=== PATIENT | male | born 2000 | race Caucasian/White ===

== ENCOUNTER 2018-11-30 22:43 | Observation (INO) ==
--- OUTSIDE RECORDS SUMMARY | 2018-11-30 22:48 | External Medical Summary | Continuity of Care Document ---
:2000 Author Name Iesha Santillan Address Unavailable Unavailable , Care Team Providers Name Role Phone Seble Santillan Unavailable [email or web address] Unavailable Unavailable Assessments Assessed Problems:Acute appendicitis Problems Acute appendicitis (540.9) (K35.80) Allergies and Adverse Reactions No Known Drug Allergies (Allergy) Medications No Reported Medications Refills: 0 Procedures History of Laparoscopic Appendectomy Sta tus: Completed 13-Apr-2016 0:00 Immunizations Immunizations not documented Plan of Treatment Planned Observations Planned Goals not documented Results No Known Results Results not documented Encounters Appointment; Aditya Pruett M.D. 21-Apr-2016 16:00 Encounter Diagnosis: Problem not documented
[2018-11-30] MEDS ORDERED: CLINDAMYCIN 900 MG in DEXTROSE 5% 50 ML IV ONE (23:15)
[2018-11-30] MEDS ORDERED: SODIUM CHLORIDE 0.9% 1000ML 1,000 ML IV ONE (23:15)
[2018-11-30 23:31] LABS: Basophils # (auto) 0.05 K/uL (0-0.2); Basophils % (auto) 0.5 %; Eosinophils # (auto) 0.19 K/uL (0-0.5); Eosinophils % (auto) 1.9 %; Hematocrit (blood only) 39.2 % (42-52); Immature Granulocytes # (auto) 0.02 K/uL (0.00-0.02); Immature Granulocytes % (auto) 0.2 %; Lymphocytes % (auto) 33.2 %; Mean Corpuscular Hgb Conc 33.2 g/dL (32-36); Mean Corpuscular Volume 80.2 fL (80-100); Mean Platelet Volume 9.4 fL (7.4-10.4); Monocytes # (auto) 0.98 K/uL (0.11-0.59); Monocytes % (auto) 9.6 %; Neutrophils % (auto) 54.6 %; Platelet Count 316 K/uL (130-400); RDW Coefficient of Variation 13.8 % (11.5-14.5); RDW Standard Deviation 40.2 fL (36.4-46.3); Red Blood Count 4.89 M/uL (4.7-6.1); White Blood Count 10.24 K/uL (4.8-10.8)
--- NOTE | 2018-11-30 23:47 | Emergency Department Note ---
History of Present Illness General Chief complaint: Infection Stated complaint: LEFT LOWER LEG, PAIN/SWELLING, RASH History of Present Illness Maximum Pain Intensity: 1 This 18-year-old presents to the ER complaining of left lower leg infection Location: Left lower leg Quality: Irritated Severity: Moderate Duration: 3 days Timing: Started 3 days ago Context: Symptoms got worse and came in Modifying factors: better with nothing; worse with nothing Patient went to urgent care twice and was initially placed on Keflex and on Bactrim. The infection spread and then came here. No known injury. Patient denies chest pain, dyspnea, fevers, numbness, tingling, trauma to the area. No history of MRSA or diabetes. He does not routinely see the doctor. Home Medications Home Medications Medication Instructions Recorded Confirmed Type cephalexin 500 mg PO TID 12/01/18 12/01/18 History sulfamethoxazole-trimethoprim 20 ml PO BID 12/01/18 12/01/18 History Allergies Allergy/AdvReac Type Severity Reaction Status Date / Time No Known Allergies Allergy Unverified 12/01/18 00:28 Past Med/Surg History Medical History No acute medical problems Social History Preferred Language: [place]ese Feels Safe at Home: Yes Smoking Status: Never smoker Review of Systems All systems reviewed & are unremarkable except as noted in HPI & below Physical Exam Vital Signs Vital Signs - 24 hr 11/30/18 22:47 11/30/18 23:32 12/01/18 00:15 Temperature 36.9 C Temperature Source Oral Sepsis Recent Fever Within 48 Hours No Sepsis New/Unexplained Change in Mental Status No Sepsis Action Taken by Nursing No Action Required Pulse Rate 120 H Pulse Rate [Finger] 107 H Respiratory Rate 18 18 Respiratory Effort / Characteristics Non-Labored Respiratory Depth Normal Blood Pressure 167/103 H Blood Pressure [Left Arm] 134/70 Blood Pressure Mean 124 Blood Pressure Mean [Left Arm] 91 Pulse Oximetry 98 97 96 Oxygen Delivery Method Room Air Room Air Room Air VITALS: Vitals are noted on the nurse's note and reviewed by myself. Vital signs hypertensive GENERAL: Pleasant male anxious appearing, in no acute distress, nondiaphoretic, well-developed well-nourished. SKIN: Capillary reflex less than 2 seconds. HEENT: Normocephalic. PERRLA. EOMI. Nares patent. Mucous membranes moist. Neck is supple without nuchal rigidity. HEART: Regular rate and rhythm without murmurs gallops or rubs. LUNGS: Clear to auscultation bilaterally without wheezes, rales or rhonchi. No retractions or accessory muscle use. ABDOMEN: Positive bowel sounds x 4. Normal tympanic percussion. Soft, nontender, without masses or organomegaly. Swift sign negative. No guarding or rebound tenderness. MUSCULOSKELETAL: No gross musculoskeletal defects. Left lower anterior leg with cellulitis that extends the majority of the tib-fib area down to the foot. No calf tenderness. Pedal pulses +2 equal and present bilaterally. NEURO: Patient was alert and oriented to person place and time. Normal sensation to light and sharp touch. No focal neurological deficits. Course Administered Medications Discontinued Medications Clindamycin Phosphate 900 mg/ (Dextrose) 56 mls @ 112 mls/hr IV ONE ONE Stop: 11/30/18 23:44 Last Infusion: 12/01/18 00:07 Dose: 0 mls/hr Documented by: [id number] Admin: 11/30/18 23:34 Dose: 112 mls/hr Documented by: [id number] Sodium Chloride (Nss 1000ml) 1,000 mls @ 999 mls/hr IV .Q1H1M ONE Stop: 12/01/18 00:15 Last Infusion: 12/01/18 00:46 Dose: 0 mls/hr Documented by: [id number] Admin: 11/30/18 23:29 Dose: 999 mls/hr Documented by: [id number] Medical Decision Making Medical Records Attestation: I reviewed the patient's medical records. Home Medications Current Medication List: was personally reviewed by me Laboratory Data Attestation: I reviewed the patient's lab results. Result diagrams: 11/30/18 23:25 11/30/18 23:25 Lab Results 11/30/18 11/30/18 Range/Units 23:25 23:25 WBC 10.24 (4.8-10.8) K/uL RBC 4.89 (4.7-6.1) M/uL Hgb 13.0 L (14.0-18.0) g/dL Hct 39.2 L (42-52) % MCV 80.2 (80-100) fL MCH 26.6 (25-34) pg MCHC 33.2 (32-36) g/dL RDW Std Deviation 40.2 (36.4-46.3) fL RDW Coeff of Hyun 13.8 (11.5-14.5) % Plt Count 316 (130-400) K/uL MPV 9.4 (7.4-10.4) fL Immature Gran % (Auto) 0.2 % Neut % (Auto) 54.6 % Lymph % (Auto) 33.2 % [place] % (Auto) 9.6 % Eos % (Auto) 1.9 % Baso % (Auto) 0.5 % Immature Gran # (Auto) 0.02 (0.00-0.02) K/uL Neut # (Auto) 5.60 (1.4-6.5) K/uL Lymph # (Auto) 3.40 (1.2-3.4) K/uL [place] # (Auto) 0.98 H (0.11-0.59) K/uL Eos # (Auto) 0.19 (0-0.5) K/uL Baso # (Auto) 0.05 (0-0.2) K/uL Sodium 139 (136-145) mmol/L Potassium 3.8 (3.5-5.1) mmol/L Chloride 106 (98-107) mmol/L Carbon Dioxide 26 (21-32) mmol/L Anion Gap 7.0 (3-11) BUN 12 (7-18) mg/dl Creatinine 1.01 (0.6-1.4) mg/dl Est Cr Clr Drug Dosing 187.1 ml/min Est GFR ( Amer) 123.5 Est GFR (Non-Af Amer) 106.6 BUN/Creatinine Ratio 11.7 (10-20) Glucose 118 H (70-99) mg/dl Calcium 8.8 (8.5-10.1) mg/dl Total Bilirubin 0.3 (0.2-1) mg/dl AST 21 (15-37) U/L ALT 38 (12-78) U/L Alkaline Phosphatase 63 (45-117) U/L Total Protein 7.9 (6.4-8.2) gm/dl Albumin 3.4 (3.4-5.0) gm/dl Globulin 4.5 H (2.5-4.0) gm/dl Albumin/Globulin Ratio 0.8 L (0.9-2) Imaging Data Attestation: I personally reviewed and interpreted this imaging study as follows: MDM Narrative Prior records reviewed and summarized as above. Triage Nursing notes reviewed. Additional history obtained from family. The patient's history was concerning for swelling and redness of the skin. Differential diagnosis: Etiologies such as cellulitis, abscess, MRSA infection, DVT, necrotizing fasciitis, dermatitis, drug eruption, as well as others were entertained.. Physical examination: The physical examination was consistent with cellulitis ER treatment provided: Clindamycin IV On reassessment the patient felt better. Diagnostics interpreted by me: The labs revealed mild anemia No leukocytosis Imaging studies: US VENOUS LEFT LOWER EXTREMITY: No evidence of DVT in the visualized veins of the left lower extremity. Multiple enlarged lymph nodes in the left groin with the largest measuring 4 x 1 x 3 cm is indeterminate. Radiologist: Alyssa Stanford MD Consultation: A consultation was placed with bobbi Dooley. The case was discussed and diagnostics were reviewed. The patient was evaluated in the ER for further treatment. This appears to be isolated cellulitis. Patient's been on antibiotics outpatient. Symptoms have gotten worse. He was given IV antibiotics and evaluated by medicine for possible admission. Patient is agreeable treatment plan of admission. By the evaluation outlined above emergent etiologies such as abscess, necrotizing fasciitis, DVT, as well as others were deemed relatively unlikely. The pt informed about the findings as listed above. All questions were answered and pleased with the treatment. Case reviewed with my attending The chart was completed utilizing [employer] Speech voice recognition software. Grammatical errors, random word insertions, pronoun errors, and incomplete sentences are an occassional consequence of this system due to software limitations, ambient noise, and hardware issues. Any formal questions or concerns about the content, text, or information contained within the body of this dictation should be directly addressed to the physician health center assistant for clarification. Impression & Plan Cellulitis of left leg, Failure of outpatient treatment Discharge Plan Visit Data Chief Complaint: Infection Stated Complaint: LEFT LOWER LEG, PAIN/SWELLING, RASH ED Provider: Biju Jones ED Midlevel Provider: Conchita Hidalgo Discharge Problem: Cellulitis of left leg, Failure of outpatient treatment Patient Disposition: Being Evaluated by Hospitalist Condition: Fair Forms Stand Alone Forms: My [facility] Prescriptions Prescriptions: No Action cephalexin 250 mg/5 mL suspension for reconstitution 500 mg PO TID RF: 0 sulfamethoxazole-trimethoprim 200-40 mg/5 mL suspension 20 ml PO BID RF: 0 Referrals Referrals: Ammon Cao DO [Primary Care Provider] -
[2018-11-30 23:51] LABS: Albumin Level 3.4 gm/dl (3.4-5.0); BUN Creatinine Ratio 11.7 (10-20); Calcium 8.8 mg/dl (8.5-10.1); Creatinine Clr Calc Pharmacy 187.1 ml/min; Est GFR (African American) 123.5; Est GFR (Non-African American) 106.6; Potassium 3.8 mmol/L (3.5-5.1)
[2018-11-30 23:54] LABS: Albumin Globulin Ratio 0.8 (0.9-2); Bilirubin,Total 0.3 mg/dl (0.2-1); Globulin 4.5 gm/dl (2.5-4.0); Total Protein 7.9 gm/dl (6.4-8.2)
--- NOTE | 2018-12-01 02:17 | History & Physical Report ---
Date of Service December 01, 2018 Assessment & Plan (1) Cellulitis of left leyo M admitted 12/01/18 for failed outpatient treatment of LLE cellulitis Cellulitis/Failed outpatient therapy -USS negative for DVT -Started on Clindamycin 600 TID -Probiotic ordered -Continue to monitor symptoms, vitals, WBC count DVTP: low risk Code: Full Dispo: Med surg admit. Heart healthy diet ordered. (2) Failure of outpatient treatment: History of Present Illness Chief Complaint: Cellulitis Primary Care Provider: Ammon Cao DO Patient is a pleasant 18yo M no significant PMH who presents with failed outpatient treatment of LLE cellulitis. Patient states he noticed about 4 days ago that his LLE was uncomfortable, tender and red. He does not recall any trauma, although he did hit his leg against a filing cabinet at work a few days prior. He states on day 1 he felt some chills and had a headache, but denies fever. He went to [facility] and was prescribed keflex, and the area was marked in a heart shape. After 48 hours taking keflex, he noted the area to be worsening, extending beyond the demarcation area. He returned to clinic and was placed on bactrim. He is coming up on 48 hour of bactrim use and noted again, noted the redness extending beyond the new demarcation. He states the area is more crampy than painful and feels "tight". Continues to deny fevers. Denies any drainage, numbness, tingling. Notes he hasn't really touched it but expects it would be warm and tender. He denies diabetes or h/o MRSA. He was afebrile without an elevated WBC in the ER. Doppler was negative for DVT. Started on clindamycin. Allergies Allergy/AdvReac Type Severity Reaction Status Date / Time No Known Allergies Allergy Unverified 12/01/18 00:28 Home Medications Home Medications Medication Instructions Recorded Confirmed Type cephalexin 500 mg PO TID 12/01/18 12/01/18 History sulfamethoxazole-trimethoprim 20 ml PO BID 12/01/18 12/01/18 History Past Med/Surg History Medical History No acute medical problems Surgical History History of appendectomy Social History Preferred Language: Turkmen Communication Ability: Effective Operations General Agent Required: No Beliefs That Will Affect Care: None Current Living Situation: Other Current Living Situation Comment: [facility] Other Information That Helps Us Care for You: No Feels Safe at Home: Yes Safety Concerns: Feels Safe At This Time Smoking Status: Never smoker Hx Alcohol Use: No Hx Substance Use: No Review of Systems Review of Systems: All systems reviewed & are unremarkable except as noted in HPI & below Constitutional: + chills Gastrointestinal: no nausea, no vomiting and no diarrhea/loose stools Integumentary: + lesions, + new lesions, + non-healing lesions, + erythema and + skin swelling Physical Exam Constitutional: WD/WN, vitals as above + morbidly obese Eyes: PERRL, conjunctivae normal, anicteric sclerae ENMT: external ear and nose normal, oropharynx normal Neck: normal visual inspection Respiratory: normal respiratory effort, lungs clear to auscultation Cardiovascular: RRR, no murmur, no edema Gastrointestinal (Abdomen): normal bowel sounds, soft, nontender, no hepatosplenomegaly Inspection/Auscultation: + abdomen distended Musculoskeletal: Extremities: + extremities abnormal to inspection Skin: normal turgor and + erythema (Area extending to majority of anterior LLE. Some ?blistering developing. ) Neurologic: PERRL, EOMI, accommodation nl, no face palsy, no dysarthria neurovascular supply intact to LE bilaterally Results & Data Vital Signs (Past 12 Hours) Vital Signs Temp Pulse Pulse Resp BP BP Pulse Ox 12/01/18 02:07 81 18 119/71 97 12/01/18 00:15 107 H 18 134/70 96 11/30/18 23:32 97 11/30/18 22:47 36.9 C 120 H 18 167/103 H 98 Laboratory Results 11/30/18 11/30/18 Range/Units 23:25 23:25 WBC 10.24 (4.8-10.8) K/uL RBC 4.89 (4.7-6.1) M/uL Hgb 13.0 L (14.0-18.0) g/dL Hct 39.2 L (42-52) % MCV 80.2 (80-100) fL MCH 26.6 (25-34) pg MCHC 33.2 (32-36) g/dL RDW Std Deviation 40.2 (36.4-46.3) fL RDW Coeff of Hyun 13.8 (11.5-14.5) % Plt Count 316 (130-400) K/uL MPV 9.4 (7.4-10.4) fL Immature Gran % (Auto) 0.2 % Neut % (Auto) 54.6 % Lymph % (Auto) 33.2 % [place] % (Auto) 9.6 % Eos % (Auto) 1.9 % Baso % (Auto) 0.5 % Immature Gran # (Auto) 0.02 (0.00-0.02) K/uL Neut # (Auto) 5.60 (1.4-6.5) K/uL Lymph # (Auto) 3.40 (1.2-3.4) K/uL [place] # (Auto) 0.98 H (0.11-0.59) K/uL Eos # (Auto) 0.19 (0-0.5) K/uL Baso # (Auto) 0.05 (0-0.2) K/uL Sodium 139 (136-145) mmol/L Potassium 3.8 (3.5-5.1) mmol/L Chloride 106 (98-107) mmol/L Carbon Dioxide 26 (21-32) mmol/L Anion Gap 7.0 (3-11) BUN 12 (7-18) mg/dl Creatinine 1.01 (0.6-1.4) mg/dl Est Cr Clr Drug Dosing 187.1 ml/min Est GFR ( Amer) 123.5 Est GFR (Non-Af Amer) 106.6 BUN/Creatinine Ratio 11.7 (10-20) Glucose 118 H (70-99) mg/dl Calcium 8.8 (8.5-10.1) mg/dl Total Bilirubin 0.3 (0.2-1) mg/dl AST 21 (15-37) U/L ALT 38 (12-78) U/L Alkaline Phosphatase 63 (45-117) U/L Total Protein 7.9 (6.4-8.2) gm/dl Albumin 3.4 (3.4-5.0) gm/dl Globulin 4.5 H (2.5-4.0) gm/dl Albumin/Globulin Ratio 0.8 L (0.9-2) Code Status & VTE Plan Code Status full VTE Prophylaxis Plan VTE Prophylaxis will be ordered: No Supervising Physician Co-Signing Physician Notes Patient seen and examined, chart reviewed, case discussed with Dr. Roberts and I agree with her assessment and plan as documented above. Briefly, patient is a 18yo C male with no significant past medical or surgical history presenting with cellulitis of LLE, failed outpatient treatment. He denies fevers/chills/nausea/vomiting/malaise, no other complaints at this time. On exam he is afebrile, hemodynamically stable, nontoxic in appearance LLE with warmth and redness of calf into thigh, nontender, no bullae/crepitus or lymphagitic streaking Remainder of exam unremarkable Labs and images reviewed. US of LLE negative for DVT Assessment/Plan: Moderate nonpurulent cellulitis, failed outpatient treatment, no systemic signs of illness. -Jean-Paul area of cellulitis -Clindamycin -Remainder of plan as above Resident Activity Tracking Resident Involvement: Resident Care Provided Care Provided: Adult Hospital Medicine
[2018-12-01] MEDS ORDERED: MAGNESIUM HYDROXIDE SUSP 30 ML UDC PO PRN (02:25)
[2018-12-01] MEDS ORDERED: ALUMINUM/MAGNESIUM SUSP 30 ML UDC PO PRN (02:25)
[2018-12-01] MEDS ORDERED: ACETAMINOPHEN 325 MG TAB PO PRN (02:25)
[2018-12-01] MEDS ORDERED: ONDANSETRON INJ 2 MG/ML 2 ML VIAL IV PRN (02:25)
[2018-12-01] MEDS ORDERED: POLYETHYLENE (MIRALAX) 17 GM PACK PO PRN (02:25)
--- NOTE | 2018-12-01 07:03 | Ultrasound Report ---
ULTRASOUND LEFT LOWER EXTREMITY VENOUS CLINICAL HISTORY: Dyspnea. Lower extremity erythema. COMPARISON STUDY: No priors. TECHNIQUE: Real-time, grayscale, and color Doppler sonography of the deep veins of the left lower ext remity was performed from the inguinal crease to the calf. Compression and augmentation were utilized . FINDINGS: There is no sonographic evidence of deep venous thrombosis identified in the left lower ext remity. The common femoral, superficial femoral, and popliteal veins are patent and normally compress ible. The greater saphenous vein and the profunda femoris vein at the junction with the common femora l vein are clear. The visualized calf veins are patent. There are prominent left inguinal lymph nodes . IMPRESSION: 1. There is no sonographic evidence of deep venous thrombosis identified in the left lower extremity. 2. There are prominent left inguinal lymph nodes, possibly on a reactive basis. Clinical correlation will be required. Electronically signed by: Andi Judge M.D. 12/01/2018 7:01 AM
--- NOTE | 2018-12-01 07:09 | Family Medicine Progress Note ---
Date of Service December 01, 2018 Assessment & Plan (1) Cellulitis of left leyo M admitted 12/01/18 for failed outpatient treatment of LLE cellulitis Cellulitis/Failed outpatient therapy -Likely due to traumatic infection or underlying disease predisposing to infecti on or both. -Hx of Keflex and Bactrim use with progression of lesion. These meds d/liliya. -Pt started on Clindamycin 600 TID and states he is improving. Will continue to monitor overnight. -Doppler negative for DVT but notes prominent L inguinal lymph nodes. Will continue to monitor. -No wound cultures as no open lesions. -Probiotic ordered since pt on Clinda. -HgA1c ordered to rule out diabetes as underlying cause given pt's weight, mildly elevated glucose and presenting symptoms. DVT Prophylaxis: low risk Code: Full Dispo: Discharge pending improvement in symptoms. Supervising Physician Co-Signing Physician Notes Resident Physician Supervision Note: I independently interviewed and examined the patient and verified the schwartz history and physical, reviewed labs and image studies, discussed the case with the resident Dr. Saeed and agree with the findings and care plan. Subjective Mr. Verde states that he feels like the LLE is less red than on admission. Otherwise no changes. Denies AGUIRRE, chest pain, SOB, abd pain, N/V. Has some mild tenderness in LLE but no pain in right leg. Review of Systems Review of Systems: All systems reviewed & are unremarkable except as noted in HPI & below Physical Exam Physical Exam: General: Alert, oriented. No acute distress. Obese gentleman. HEENT: NC/AT, PERRLA, EOMI, oropharynx moist. Chest: Nontender to palpation. CV: Decreased due to habitus but RRR. No murmurs appreciated. Resp: Breath sounds decreased due to habitus but clear bilaterally, no increased effort of breathing. Abdomen: BS+. Soft, nontender. No guarding. Extremities: LLE with erythema, warmth, swelling of leg and foot. On anterior davis of LLE, there appears to be a linear laceration with linear pustular formation. There are blue markings dictating the edge of the lesion. No seeping fluid noted or open lesions. Pt with full movement of toes and sensation bilaterally. Results & Data Vital Signs (Past 12 Hours) Vital Signs Temp Pulse Pulse Resp BP BP Pulse Ox 12/01/18 07:08 36.5 C 72 18 122/71 98 12/01/18 02:34 37.3 C 85 18 139/82 96 12/01/18 02:07 81 18 119/71 97 12/01/18 00:15 107 H 18 134/70 96 11/30/18 23:32 97 11/30/18 22:47 36.9 C 120 H 18 167/103 H 98 Laboratory Results Laboratory Results - last 24 hr 11/30/18 11/30/18 12/01/18 23:25 23:25 09:41 WBC 10.24 RBC 4.89 Hgb 13.0 L Hct 39.2 L MCV 80.2 MCH 26.6 MCHC 33.2 RDW Std Deviation 40.2 RDW Coeff of Hyun 13.8 Plt Count 316 MPV 9.4 Immature Gran % (Auto) 0.2 Neut % (Auto) 54.6 Lymph % (Auto) 33.2 [place] % (Auto) 9.6 Eos % (Auto) 1.9 Baso % (Auto) 0.5 Immature Gran # (Auto) 0.02 Neut # (Auto) 5.60 Lymph # (Auto) 3.40 [place] # (Auto) 0.98 H Eos # (Auto) 0.19 Baso # (Auto) 0.05 Sodium 139 Potassium 3.8 Chloride 106 Carbon Dioxide 26 Anion Gap 7.0 BUN 12 Creatinine 1.01 Est Cr Clr Drug Dosing 187.1 Est GFR ( Amer) 123.5 Est GFR (Non-Af Amer) 106.6 BUN/Creatinine Ratio 11.7 Glucose 118 H Estimat Average Glucose 123 Hemoglobin A1c 5.9 H Calcium 8.8 Total Bilirubin 0.3 AST 21 ALT 38 Alkaline Phosphatase 63 Total Protein 7.9 Albumin 3.4 Globulin 4.5 H Albumin/Globulin Ratio 0.8 L Medications Administered Home Medications cephalexin 500 mg PO TID 12/01/18 [History Confirmed 12/01/18] sulfamethoxazole-trimethoprim 20 ml PO BID 12/01/18 [History Confirmed 12/01/18] Active Medications Acetaminophen (Tylenol) 650 mg PO Q4H PRN PRN Reason: pain/fever Stop: 12/31/18 02:24 Al Hydrox/Mg Hydrox/Simethicone (Maalox) 30 ml PO Q6H PRN PRN Reason: Dyspepsia Stop: 12/31/18 02:24 Clindamycin Phosphate 600 mg/ (Dextrose) 54 mls @ 100 mls/hr IV Q8H SARA Stop: 12/11/18 07:59 Last Infusion: 12/01/18 09:57 Dose: Infused Documented by: Magnesium Hydroxide (Milk Of Magnesia) 30 ml PO Q6H PRN PRN Reason: Constipation Stop: 12/31/18 02:24 Ondansetron HCl (Zofran) 4 mg IV Q6H PRN PRN Reason: Nausea Stop: 12/31/18 02:24 Polyethylene Glycol (Miralax Powder Packet) 17 gm PO DAILY PRN PRN Reason: Constipation Stop: 12/31/18 02:24 Saccharomyces Boulardii (Florastor) 250 mg PO DAILY SARA Stop: 12/31/18 08:59 Last Admin: 12/01/18 08:47 Dose: 250 mg Documented by: Resident Activity Tracking Resident Involvement: Resident Care Provided Care Provided: Adult Hospital Medicine
[2018-12-01] MEDS: SACCHAROMYCES BOULARDII 250 MG CAP PO SCH (08:47)
[2018-12-01] MEDS: CLINDAMYCIN 600 MG in DEXTROSE 5% 50 ML IV SCH ×2 (09:22→16:33)
[2018-12-01 10:28] LABS: Estimated Average Glucose 123 mg/dl; Hemoglobin A1C 5.9 % (4.5-5.6)
[2018-12-02] MEDS: CLINDAMYCIN 600 MG in DEXTROSE 5% 50 ML IV SCH ×2 (01:25→08:06)
[2018-12-02 06:55] LABS: Basophils # (auto) 0.05 K/uL (0-0.2); Basophils % (auto) 0.5 %; Eosinophils # (auto) 0.25 K/uL (0-0.5); Eosinophils % (auto) 2.6 %; Hematocrit (blood only) 37.4 % (42-52); Hemoglobin 12.5 g/dL (14.0-18.0); Immature Granulocytes # (auto) 0.01 K/uL (0.00-0.02); Immature Granulocytes % (auto) 0.1 %; Lymphocytes % (auto) 34.9 %; Mean Corpuscular Hgb Conc 33.4 g/dL (32-36); Mean Corpuscular Volume 80.4 fL (80-100); Mean Platelet Volume 9.2 fL (7.4-10.4); Monocytes # (auto) 0.83 K/uL (0.11-0.59); Monocytes % (auto) 8.8 %; Neutrophils # (auto) 5.01 K/uL (1.4-6.5); Neutrophils % (auto) 53.1 %; Platelet Count 317 K/uL (130-400); RDW Coefficient of Variation 13.9 % (11.5-14.5); Red Blood Count 4.65 M/uL (4.7-6.1); White Blood Count 9.45 K/uL (4.8-10.8)
[2018-12-02 07:23] LABS: BUN Creatinine Ratio 13.9 (10-20); Blood Urea Nitrogen 10 mg/dl (7-18); Calcium 8.8 mg/dl (8.5-10.1); Carbon Dioxide 27 mmol/L (21-32); Chloride 105 mmol/L (98-107); Creatinine Clr Calc Pharmacy 262.6 ml/min; Est GFR (African American) > 150.0; Est GFR (Non-African American) 134.3; Glucose 90 mg/dl (70-99); Sodium 137 mmol/L (136-145)
[2018-12-02] MEDS: SACCHAROMYCES BOULARDII 250 MG CAP PO SCH (10:26)
--- NOTE | 2018-12-02 12:03 | Discharge Summary ---
Date of Service December 02, 2018 Admission HPI Per Admitting Provider Patient is a pleasant 18yo M no significant PMH who presents with failed outpatient treatment of LLE cellulitis. Patient states he noticed about 4 days ago that his LLE was uncomfortable, tender and red. He does not recall any trauma, although he did hit his leg against a filing cabinet at work a few days prior. He states on day 1 he felt some chills and had a headache, but denies fever. He went to [facility] and was prescribed keflex, and the area was marked in a heart shape. After 48 hours taking keflex, he noted the area to be worsening, extending beyond the demarcation area. He returned to clinic and was placed on bactrim. He is coming up on 48 hour of bactrim use and noted again, noted the redness extending beyond the new demarcation. He states the area is more crampy than painful and feels "tight". Continues to deny fevers. Denies any drainage, numbness, tingling. Notes he hasn't really touched it but expects it would be warm and tender. He denies diabetes or h/o MRSA. He was afebrile without an elevated WBC in the ER. Doppler was negative for DVT. Started on clindamycin. Admission Exam Per Admitting Provider Constitutional: WD/WN, vitals as above + morbidly obese Eyes: PERRL, conjunctivae normal, anicteric sclerae ENMT: external ear and nose normal, oropharynx normal Neck: normal visual inspection Respiratory: normal respiratory effort, lungs clear to auscultation Cardiovascular: RRR, no murmur, no edema Gastrointestinal (Abdomen): normal bowel sounds, soft, nontender, no hepatosplenomegaly Inspection/Auscultation: + abdomen distended Musculoskeletal: Extremities: + extremities abnormal to inspection Skin: normal turgor and + erythema (Area extending to majority of anterior LLE. Some ?blistering developing. ) Neurologic: PERRL, EOMI, accommodation nl, no face palsy, no dysarthria neurovascular supply intact to LE bilaterally Principal Diagnosis Cellulitis Discharge Exam General: Alert, oriented. No acute distress. Obese gentleman. HEENT: NC/AT, PERRLA, EOMI, oropharynx moist. Chest: Nontender to palpation. CV: Decreased due to habitus but RRR. No murmurs appreciated. Resp: Breath sounds decreased due to habitus but clear bilaterally, no increased effort of breathing. Abdomen: BS+. Soft, nontender. No guarding. Extremities: LLE with erythema, warmth today ONLY in heart shaped area which was area of original presentation on anterior davis. Swelling of left foot and left lower extremity considerably decreased today. Linear laceration with linear pustular formation still present. No seeping fluid noted or open lesions. Pt with full movement of toes and sensation bilaterally. Discharge Data Allergies Allergy/AdvReac Type Severity Reaction Status Date / Time No Known Allergies Allergy Unverified 12/01/18 00:28 Consultations 12/01/18 00:55 ED Decision to Admit Stat Ordered Studies 11/30/18 23:11 US venous doppler LE Urgent Hospital Course (1) Cellulitis of left leyo M admitted 12/01/18 for failed outpatient treatment of LLE cellulitis. Discharged on 12/02/2018. Cellulitis/Failed outpatient therapy -Hx of Keflex and Bactrim use for 2 days as an outpt with progression of lesion. Pt presented These meds were discontinued while hospitalized. -Pt started on Clindamycin 600 TID IV and improved considerably overnight. Discharged with Clindamycin 450mg QID for an additional 5 days. -Doppler of lower extremities were negative for DVT Mild anemia -Outpatient follow up Elevated HgA1c -Elevated at 5.9, -PCP followup Total Time Total Time Spent Total Time Spent (In Minutes): 60 Discharge Plan Discharge Items Patient Disposition: Home - Self-Care Reason For Visit: CELLULITIS Discharge Diagnosis: Cellulitis Condition: Fair Discharge Goals: Decrease discomfort and Improve function Activity: Resume your previous activity Non-emergency contact: Primary Care Provider Call non-emergency contact if: your symptoms worsen, you have a fever, your wound has increased redness, your wound has increased drainage and your wound pain has increased Follow-up/Referrals: Ammon Cao DO [Primary Care Provider] - Diet: Carb Consistent or DM2 Addtl Provider Instructions: You were treated in the hospital for an infection of your left leg and foot that was not responding to previous medications prescribed. Cellulitis of Left Lower Extremity -You were treated with the antibiotic Clindamycin while hospitalized and it seemed to help your leg infection. -You are being discharged with 5 additional days worth of Clindamycin 450mg to be taken 4 times DAILY for an additional 5 days. -Please also continue to take a probiotic (like Activia) or other over the counter probiotic supplements which can be found at any drugstore to reduce any diarrheal illness that can occur with taking the antibiotic. -Please stop taking your previous antibiotics Keflex and Bactrim as these can further increase the risk of diarrhea. -Please followup with your PCP and present to your PCP should you develop a new fever or worsening symptoms. Elevated hemoglobin A1C -Your blood sugars were higher than normal while you were hospitalized. -Your hemoglobin A1c was also elevated at 5.9 which suggests that though you do not have diabetes yet, your blood sugar levels have been higher than normal in the last 3 months or so. -I would recommend a change to your diet as well as increasing physical activity to help with preventing diabetes. -Also close followup with a primary care provider is also strongly recommended. Prescriptions: New clindamycin HCl 300 mg capsule 450 mg PO QID 5 Days Qty: 30 RF: 0 Discontinued cephalexin 250 mg/5 mL suspension for reconstitution 500 mg PO TID RF: 0 sulfamethoxazole-trimethoprim 200-40 mg/5 mL suspension 20 ml PO BID RF: 0 Stand-Alone Forms: My [facility] [employer] [facility]/Other Patient Handouts: Cellulitis Dc, Diabetes Prediabetes Discharge Orders: Discharge Order (Routine); Ordered 12/02/18 Ordered By: Sabine Saeed Admission Data Admit Date/Time: 12/01/18 02:08 Attending Provider: Holly Gaona Admit Provider: Mónica Roberts Primary Care Provider: Ammon Cao Other Providers: Micheline Alejo Service: Medical Other Interventions: Discharge Summary Assessment (RN) Last Done: 12/02/18 12:12 DC Date/Time DO NOT enter until pt leaves facility: 12/02/18 13:17 Supervising Physician Co-Signing Physician Notes Resident Physician Supervision Note: I independently interviewed and examined the patient and verified the schwartz history and physical, reviewed labs and image studies, discussed the case with the resident Dr. Saeed and agree with the findings and care plan. Resident Activity Tracking Resident Involvement: Resident Care Provided Care Provided: Adult Hospital Medicine
== END 2018-12-02 13:17 | disposition home or self-care (01) ==
LOC: 3W 22:43 → ED 22:43 → SUATTDRO 12-01 02:08 → 3W 12-01 02:22
DX: L03.116 Cellulitis of left lower limb